=== PATIENT | male | born 1930 | race Caucasian/White ===

== ENCOUNTER 2016-06-01 10:51 | Inpatient (IN) | payer OTHER ==
[~2016-06-01] VITALS: Ht 165.1 cm; Wt 61.7 kg
[~2016-06-01 10:51] MED LIST: KEFLEX250 MG PO
--- NOTE | 2016-06-01 10:55 | NUR ---
PT TO SENT TO ED BY DR CHAPA FOR EVAL. PT WAS AT DR CHAPA'S OFFICE FOR "CHECK UP" OF PACEMAKER AND WAS TOLD HE LOOKED PALE. PT APPEARS PALE, HAS NO COMPLAINTS.
--- NOTE | 2016-06-01 11:13 | NUR ---
PT APPEARS PALE AND IS AAOX3, DENIES CP SOB. CHANGING INTO GOWN FOR EVAL AT THIS TIME
--- NOTE | 2016-06-01 11:29 | ED GENERAL ADULT ---
History of Present Illness General Chief Complaint: General Adult Stated Complaint: SENT BY FOR EVAL Source: patient, old records Exam Limitations: no limitations Vital Signs & Intake/Output Vital Signs & Intake/Output ED Intake and Output 06/02 0000 06/01 1200 Intake Total Output Total Balance Patient 136 lb Weight Weight Reported by Patient Measurement Method Allergies Coded Allergies: NO KNOWN ALLERGIES (06/04/11) Reconcile Medications Aspirin (Aspirin*) 81 MG TAB.CHEW 1 TAB PO QPM HEART HEALTH (Reported) Atorvastatin Calcium 80 MG TABLET 1 TAB PO QPM CHOLESTEROL (Reported) Metoprolol Succ XL (Toprol XL) 25 MG TAB 1 TAB PO QPM HEART (Reported) Oxybutynin Chloride (Ditropan XL) 10 MG TAB.ER.24 1 TAB PO QPM BLADDER ( Reported) Pantoprazole Sodium (Protonix) 40 MG GRANPKT.DR 1 TAB PO DAILY GI BLEED Ranitidine HCl (Acid Tallow Refiner) 150 MG TABLET 1 TAB PO BID PRN GI (Reported) Terazosin HCl 2 MG CAPSULE 1 CAP PO QPM PROSTATE (Reported) Triage Note: PT TO SENT TO ED BY DR CHAPA FOR EVAL. PT WAS AT DR CHAPA'S OFFICE FOR "CHECK UP" OF PACEMAKER AND WAS TOLD HE LOOKED PALE. PT APPEARS PALE, HAS NO COMPLAINTS. Triage Nurses Notes Reviewed? yes Onset: Abrupt Duration: day(s): (1), constant Timing: recent history Injury Environment: home Severity: mild Severity Numbers: 1 No Modifying Factors: none Associated Symptoms: denies HPI: 86-year-old male with history of hypertension high cholesterol, previous prostate cancer presents to the ER for evaluation sent in by his ranger aide to be sought. This week. He states he received a phone call this morning that his blood counts were low. Patient states over the past few days he is appeared pale. Reports about a month ago he had an episode of bloody stools that he thought had resolved. He denies any black or bloody stools recently area no weight loss. He denies dizziness lightheadedness chest pain palpitations abdominal pain fever chills weight loss. He is not on any anticoagulation. (ISAAC OLIVAS,SERA) Past History Travel History Traveled to [place] past 21 day No Medical History Any Pertinent Medical History? see below for history Cardiovascular: CAD (PACEMAKER), hypertension, hyperlipidemia Cancer(s): prostate cancer Influenza Vaccine: 10/27/09 Surgical History Surgical History: TURP Psychosocial History Who do you live with Patient/Self Services at Home None What is your primary language Montserratian Tobacco Use: Quit >30 days ago ETOH Use: denies use Illicit Drug Use: denies illicit drug use Family History Hx Contributory? No (SERA JUAREZ) Review of Systems Review of Systems Constitutional: Reports: see HPI. All Other Systems: Reviewed and Negative Comments Review of systems: See HPI, All other systems negative. Constitutional, no chills no fever, no malaise no weight loss HEENT: No visual changes no sore throat no congestion, no ear pain Cardiovascular: No chest pain , no palpitation , no orthopnea Skin: no rashes, no change in skin Respiratory: No dyspnea no cough no sputum no hemoptysis GI: No nausea no vomiting, no diarrhea, no bloating/constipation : No dysuria No hematuria, no frequency, no discharge Muscle skeletal: No joint pain, no joint swelling, no back pain, no neck pain, Neurologic: No numbness no confusion, no headache Psych: No stress no depression,. Heme/endocrine: No bruising no bleeding Immunology: No lymphadenopathy (SERA JUAREZ) Physical Exam Physical Exam General Appearance: well developed/nourished, alert, awake Comments: Well-developed well-nourished person in no acute distress HEENT: Normal EENT exam; PERRL, EOMI, HEAD is atraumatic. moist mucous membranes. Neck: Supple, normal range of motion Back: Nontender,Full range of motion Cardiovascular: Regular rate and rhythms no murmurs rubs or gallops Respiratory: Chest nontender.There were no bony deformities, no asymmetry. No respiratory distress. Patient speaking in full complete sentences. Breath sounds clear to auscultation bilaterally: NO W/R/R Abdomen: Soft, nontender nondistended, no appreciable organomegaly. Normal bowel sounds. No rebound/guarding, No appreciable enlargement of the abdominal aorta, No ascites. Rectal: Nontender. Brown stool heme positive. Extremity: No edema, full range of motion of extremities, Neuro: Alert oriented x3, motor sensory normal, There were no obvious focal neurologic abnormalities. Skin: (+) PALLOR, No appreciable rash on exposed skin, skin is warm and dry. Psych: Mood and affect is normal, memory and judgment is normal. Core Measures ACS in differential dx? Yes CVA/TIA Diagnosis: No Severe Sepsis Present: No Septic Shock Present: No (SERA JUAREZ) Progress Differential Diagnoses I considered the following diagnoses in my evaluation of the patient: [GI bleed, symptomatic anemia, electrolyte abnormality acute kidney injury Plan of Care: Orders Procedure Date/time Status Clear Liquid Diet 06/01 D Active Pathway - chart 06/01 1436 Active Patient Data 06/01 1436 Active Code Status 06/01 1436 Active Patient Data 06/01 1312 Active Add-on Test (ER Only) 06/01 1234 Active URINALYSIS 06/01 1234 Active OXYGEN SETUP (GEN) 06/01 1223 Active Saline Lock 06/01 1223 Active Admit to inpatient 06/01 1223 Active Vital Signs 06/01 1223 Active Activity/Ambulation 06/01 1223 Active Code Status 06/01 1223 Complete TROPONIN LEVEL 06/01 1159 Complete MISTAKE 06/01 1123 Active EKG 06/01 1123 Active PARTIAL THROMBOPLASTIN TIME 06/01 1115 Complete PROTHROMBIN TIME 06/01 1115 Complete COMPREHENSIVE METABOLIC PANEL 06/01 1115 Complete CBC WITHOUT DIFFERENTIAL 06/01 1115 Complete TYPE & SCREEN (NOT X-MATCH) 06/01 1115 Complete Intake & Output 06/01 1114 Active Saline Lock 06/01 UNK Active Discharge Patient 06/01 UNK Active VTE Mechanical Prophylaxis 06/01 UNK Active Vital Signs 06/01 UNK Active Intake & Output 06/01 UNK Active FingerStick- Glucose 06/01 UNK Active Laboratory Tests 06/01/16 1159: Anion Gap 13, Estimated GFR > 60, BUN/Creatinine Ratio 15.0, Glucose 96, Calcium 8.7, Total Bilirubin 0.2, AST 11 L, ALT 16 L, Alkaline Phosphatase 59, Troponin I < 0.01, Total Protein 5.9 L, Albumin 2.8 L, Globulin 3.1, Albumin/ Globulin Ratio 0.9 L 06/01/16 1125: CBC w Diff NO MAN DIFF REQ, RBC 3.70 L, MCV 74.5 L, MCH 22.9 L, RDW 15.8 H, MPV 7.7, Gran % 70.2, Lymphocytes % 19.7 L, Monocytes % 6.4, Eosinophils % 3.0, Basophils % 0.7, Absolute Granulocytes 10.5 H, Absolute Lymphocytes 3.0, Absolute Monocytes 1.0 H, Absolute Eosinophils 0.5, Absolute Basophils 0.1, PUBS MCHC 30.8 L 06/01/16 1100: PT 13.6 H, INR 1.30 H, APTT 40 H Labs ordered old records reviewed patient denies any complaints at this time orthostatics are negative Discussed with patient LAB results given guaiac positive I believe premature discharge would BE medically harmful which patient is agreement with case was discussed with Dr. holden and dr navarro will admit,per dr navarro will hold off on transfusion at [facility] time (ISAAC OLIVAS,SERA) Diagnostic Imaging: Viewed by Me: Radiology Read. Discussed w/RAD: Radiology Read. Radiology Impression: PATIENT: SOFI THACKER PRESENT AGE: 86 PATIENT ACCOUNT NO: [id number] : 30 LOCATION: [facility] ORDERING PHYSICIAN: SERA OLIVAS SERVICE DATE: 06/01/16-1257 EXAM TYPE: RAD - XRY-PORTABLE CHEST XRAY EXAMINATION: XR PORTABLE CHEST CLINICAL INFORMATION: Elevated white blood cell count. Rule out pneumonia. COMPARISON: TECHNIQUE: Portable frontal upright view of the chest was obtained. FINDINGS: EKG leads overlie the chest. Dual-lead to the left pectoral pacemaker terminate in the right atrium and right ventricle. Cardiac and mediastinal contours are normal. Minimal atelectasis/scarring in the lung bases. No consolidation, pneumothorax, or pleural effusion. Degenerative disc disease is present in the thoracic spine. Degenerative arthritis present in the glenohumeral and acromioclavicular joints. IMPRESSION: Clear lungs. No radiographic evidence of pneumonia. DICTATED BY: OWEN WELLS MD DATE/TIME DICTATED:06/01/161317 SUBSTANCE ABUSE NURSE:CHATO DATE/TIME TRANSCRIBED:1317 CONFIDENTIAL, DO NOT COPY WITHOUT APPROPRIATE AUTHORIZATION. < Electronically signed in Other Vendor System> SIGNED BY: OWEN WELLS MD 06/01/16 1324 Initial ED EKG: NORMAL SINUS AT 90, NORMAL AXIS NO ACUTE st SEGMENT CHANGES Prior EKG: unchanged (08/2012) (SERA JUAREZ) Departure Departure Time of Disposition: 131 Disposition: STILL A PATIENT Condition: Stable Clinical Impression Primary Impression: GI bleed Secondary Impressions: Symptomatic anemia Referrals: DUSTY GOODMAN,JANAY RUIZ (PCP/Family) Departure Forms: Customer Survey General Discharge Information Prescriptions: Current Visit Scripts Pantoprazole Sodium (Protonix) 1 TAB PO DAILY #30 Admission Note Spoke With: MICHAEL CARR MD Documentation of Exam: Documentation of any treatments & extenuating circumstances including Concerns Regarding Discharge (functional status, medication knowledge or non-compliance, living conditions, etc.) that warrant an admissionrather than observation: Trend labs GI consult, trend H&H, Premature discharge would be medically harmful (SERA JUAREZ) PA/SPORTS PHYSIOLOGIST Co-Sign Statement Statement: ED Attending supervision documentation- X I saw and evaluated the patient. I have also reviewed all the pertinent lab results and diagnostic results. I agree with the findings and the plan of care as documented in the PA's/SPORTS PHYSIOLOGIST's documentation. [] I have reviewed the ED Record and agree with the PA's/SPORTS PHYSIOLOGIST's documentation. [] Additions or exceptions (if any) to the PAs/SPORTS PHYSIOLOGIST's note and plan are summarized below: [] (NAZIA GOODMAN,SHYANNE) Critical Care Note Critical Care Note Critical Care Time: non-applicable (SERA JUAREZ)
--- NOTE | 2016-06-01 11:36 | NUR ---
IV ESTABLISHED AND LABS DRAWN AND SENT (BLUE, SST X2, LAV, PINK). ORTHOS NEGATIVE
[2016-06-01 11:49] LABS: PT 13.6 SEC (9.4-12.5); PTT 40 SEC (25-37)
[2016-06-01] MEDS ORDERED: TERAZOSIN HCL2 M1 PO (11:49)
[2016-06-01] MEDS ORDERED: TOPROL XL25 M1 PO (11:50)
[2016-06-01] MEDS ORDERED: ACID REDUCER150 MG PO (11:50)
[2016-06-01] MEDS ORDERED: ATORVASTATIN CA80 M1 PO (11:50)
[2016-06-01] MEDS ORDERED: DITROPAN XL10 M1 PO (11:51)
[2016-06-01] MEDS ORDERED: ASPIRIN81 M4 PO (11:51)
[2016-06-01 11:53] LABS: ABSOLUTE BASOPHIL COUNT 0.1 /CUMM (0.0-0.2); ABSOLUTE EOSINOPHIL COUNT 0.5 /CUMM (0.0-0.7); ABSOLUTE GRANULOCYTE CT 10.5 /CUMM (1.4-6.5); BASOPHIL % 0.7 % (0.0-2.0); GRANULOCYTE % 70.2 % (42.2-75.2); HEMATOCRIT 27.5 % (42-52); MEAN CORPUSCULAR HGB 22.9 PG (27.0-31.0); MEAN CORPUSCULAR HGB CONC 30.8 G/DL (33.0-37.0); MEAN CORPUSCULAR VOLUME 74.5 FL (80.0-94.0); MEAN PLATELET VOLUME 7.7 FL (7.4-10.4); PLATELET COUNT 702 /CUMM (130-400); RBC DISTRIBUTION WIDTH 15.8 % (11.5-14.5)
--- NOTE | 2016-06-01 12:01 | NUR ---
PER LAB, SST AND PINK HEMOLYZED DESPITE TWO SST'S DRAWN. ADDITIONAL LABS DRAWN AND SENT. PT INFORMED OF DELAY IN CARE BY LABS.
--- NOTE | 2016-06-01 13:02 | History & Physical ---
See Addendum CECE OROZCO 06/01/16 1302: General Information and HPI MD Statement: I have seen and personally examined SOFI THACKER and documented this H&P. The patient is a 86 year old M who presented with a patient stated chief complaint of [GI BLEED]. Source of Information: patient Exam Limitations: no limitations History of Present Illness: This is a 86-year-old male with past medical history of hypertension, hyperlipidemia, prior history of prostate cancer (in ) status post TURP, GERD, coronary artery disease status post AICD (5-6 years ago) came in from home , after being found to have low H&H on the lab work done at primary dust sampler Dr. CHAPA'S office 2 days ago, he visited him for his regular follow-up. Most of his care has been at [facility]. Initially the patient was doing all right, and he visited his cardiology Dr. chapa 's office on 05/30/2016 for a routine follow-up, when the doctor noticed that the patient appeared very pale, and lab work was ordered. He received a call back from his office today saying that his blood counts were very low. The patient recalls that patient had one episode of bloody stools one month ago that he thought had resolved. He also notes that he has been having black stools past week or so, some dizziness and lightheadedness, but did not have any episode of juan jose blood per rectum or in his urine bag. At baseline the patient has a suprapubic small catheter and a urine bag, through which he occasionally passes urine however he has a fistula and at baseline he urinates normally as well as sometimes through the bowel area. He has occasional blood on and off through the fistula however he hasn't noticed any obvious juan jose blood in the recent past. He was noted to be guaiac-positive at the emergency department. Denied any chest pain, palpitations, abdominal pain, fever, chills, weight loss. He is not on any anticoagulation other than low-dose aspirin. He has a remote history of prostate cancer in , was complicated and the patient had TURP and fistula recently for which he was following up with the urology Department at [facility]. His doctors mainly consist of at [facility] chapa cardiology and urology at [facility]. Allergies/Medications Allergies: Coded Allergies: NO KNOWN ALLERGIES (06/04/11) Compliance With Home Meds: GOOD Past History Travel History Traveled to [place] past 21 day No Medical History Cardiovascular: CAD (PACEMAKER), hypertension, hyperlipidemia Cancer(s): prostate cancer Influenza Vaccine: 10/27/09 Surgical History Surgical History: TURP ECHO Results (as available) Date of last Echo 10/27/09 EF% 55 Past Family/Social History Psychosocial History Where do you live? Home Who Do You Live With? self Services at Home: None Smoking Status: Former Smoker ETOH Use: denies use Illicit Drug Use: denies illicit drug use Functional Ability ADLs Independent: dressing, eating, toileting, bathing. Ambulation: independent IADLs Independent: shopping, housework, finances, food prep, telephone, transportation , medication admin. Review of Systems Review of Systems Constitutional: Reports: malaise, weakness. Denies: chills, diaphoresis, fever, unexplained weight loss. EENTM: Denies: blurred vision, double vision, visual changes, eye pain. Cardiovascular: Denies: chest pain, edema, orthopena, palpitations. Respiratory: Denies: cough, hemoptysis, orthopnea, short of breath, sputum production. GI: Reports: diarrhea, melena. Denies: abdominal pain, bloating, constipation, distention, bowel incontinence, nausea, bloody stool, changes in stool, vomiting. Genitourinary: Reports: hematuria. Denies: discharge, dysuria, frequency, hesitation, nocturia , pain. Musculoskeletal: Reports: no symptoms. All Other Systems: Reviewed and Negative Exam & Diagnostic Data Last 24 Hrs of Vital Signs/I&O Vital Signs Date Time Temp Pulse Resp B/P B/P Pulse O2 O2 Flow FiO2 Mean Ox Delivery Rate 06/01 1306 98.5 81 18 157/72 97 Room Air 06/01 1114 96 Room Air 06/01 1054 98.7 103 20 132/68 97 Room Air Intake & Output 06/01 1600 06/01 0800 06/01 0000 Intake Total Output Total Balance Patient 61.689 kg Weight Weight Reported by Patient Measurement Method Physical Exam General Appearance Alert, Oriented X3, Cooperative, No Acute Distress Skin palor present Skin Temp/Moisture Exam: Cool/Dry Sepsis Skin Exam (color): Normal for Ethnicity HEENT Atraumatic, PERRLA, EOMI Neck Supple, No JVD, No thryomegaly Lymphatic no lad Cardiovascular Regular Rate, Normal S1, Normal S2, No Murmurs Lungs Clear to Auscultation, Normal Air Movement Abdomen Normal Bowel Sounds, Soft, No Tenderness Neurological Strength at 5/5 X4 Ext, Normal Tone, Sensation Intact, Cranial Nerves 3-12 NL, Reflexes 2+ Extremities No Clubbing, No Cyanosis, No Edema, Normal Pulses Vascular Normal Pulses Rectal guaic positive Last 24 Hrs of Labs/Lei: Laboratory Tests 06/01/16 1159: Anion Gap 13, Estimated GFR > 60, BUN/Creatinine Ratio 15.0, Glucose 96, Calcium 8.7, Total Bilirubin 0.2, AST 11 L, ALT 16 L, Alkaline Phosphatase 59, Troponin I < 0.01, Total Protein 5.9 L, Albumin 2.8 L, Globulin 3.1, Albumin/ Globulin Ratio 0.9 L 06/01/16 1125: CBC w Diff NO MAN DIFF REQ, RBC 3.70 L, MCV 74.5 L, MCH 22.9 L, RDW 15.8 H, MPV 7.7, Gran % 70.2, Lymphocytes % 19.7 L, Monocytes % 6.4, Eosinophils % 3.0, Basophils % 0.7, Absolute Granulocytes 10.5 H, Absolute Lymphocytes 3.0, Absolute Monocytes 1.0 H, Absolute Eosinophils 0.5, Absolute Basophils 0.1, PUBS MCHC 30.8 L 06/01/16 1100: PT 13.6 H, INR 1.30 H, APTT 40 H Diagnostic Data EKG Results paced rhythm CXR Results SERVICE DATE: 06/01/16 EXAM TYPE: RAD - XRY-PORTABLE CHEST XRAY EXAMINATION: XR PORTABLE CHEST CLINICAL INFORMATION: Elevated white blood cell count. Rule out pneumonia. COMPARISON: 10/26/2009 TECHNIQUE: Portable frontal upright view of the chest was obtained. FINDINGS: EKG leads overlie the chest. Dual-lead to the left pectoral pacemaker terminate in the right atrium and right ventricle. Cardiac and mediastinal contours are normal. Minimal atelectasis/scarring in the lung bases. No consolidation, pneumothorax, or pleural effusion. Degenerative disc disease is present in the thoracic spine. Degenerative arthritis present in the glenohumeral and acromioclavicular joints. IMPRESSION: Clear lungs. No radiographic evidence of pneumonia. Assessment/Plan Assessment: In summary this is a 86-year-old male with past medical history of hypertension, hyperlipidemia, prior history of prostate cancer status post TURP, GERD, coronary artery disease status post AICD placement came in from home after being found to have low H&H at regular lab work at his primary dust sampler Dr. CHAPA'S OFFICE. He also endorses a history of having one bloody bowel movement about a month ago which resolved by itself. Some recent black stools since last 3-4 days, some dizziness and lightheadedness and no other episodes of juan jose blood per rectum or change in the urine. Vitals on admission temperature of 98.7, pulse of 8200, respiration of 18-20, blood pressure of 132-157 systolic and 60-70 diastolic, 96% saturating on room air. Relevant labs white count of 15.0, H/H of 8.5/27.5 (last H/H noted to be 12.1/ 37.5 in 02/29/2012). MCV noted to be 74.5. PT 13.6, INR 1.30, PTT of 40. Electrolytes within normal limits, sodium of 145, potassium of 3.5, BUN and creatinine 15/1.0, glucose of 96. Liver function tests within normal limit, calcium of 8.7, initial set of troponin negative less than 0.01. Last echocardiogram as per our records was in 2009 with mild LVH, mild left ventricular agitation and ejection fraction greater than 55% however as per the patient he has had recent echocardiogram as well as colonoscopy last year at the [facility]. We'll need to open records from the [facility]. Chest x-ray was essentially negative and did not show any acute cardiopulmonary findings. Patient was found to be quite positive. We Will admit the patient to general medicine floor for acute blood loss anemia possibly secondary to upper GI versus lower GI blood loss. * Continue to monitor vitals every shift. * Continue to maintain 2 large bore IV needles. * Crossmatch and type done. * Goal H&H of 8/24. * Next H&H at 3:30 PM. If the patient drops less than 8 then we will transfuse patient 1 unit to keep hemoglobin about 8. * Continue IV PPI. * Clear liquids for now. * Nothing by mouth after midnight. * hold the aspirin. * GI consult. Problem #2 history of hypertension. * Continue metoprolol. problem # 3 History of hyperlipidemia. * Continue statin. FC dvt px alps As Ranked By This Provider Problem List: 1. GI bleed Core Measures/Miscellaneous Acute Coronary Syndrome ACS Diagnosis: No Cerebrovascular Accident CVA/TIA Diagnosis: No Congestive Heart Failure CHF Diagnosis: No Venous Thromboembolism VTE Risk Factors: Age > 40 [facility] prophylaxis d/t: No contraindications No VTE Pharm Prophylaxis d/t: No contraindications VTE Diagnosis: No VTE Type: NONE VTE Confirmed by (Test): NONE Severe Sepsis Severe Sepsis Present: No Septic Shock Septic Shock Present: No Miscellaneous Documentation Attending Case Discussed With: ERICA JACKSON MD Primary Care Physician: JANAY MONTANO MD Patient sees these Specialists dr chapa dust sampler Level of Patient Care: General Medicine ERICA JACKSON MD 06/02/16 1423: General Information and HPI Allergies/Medications Home Med list Aspirin (Aspirin*) 81 MG TAB.CHEW 1 TAB PO QPM HEART HEALTH (Reported) Atorvastatin Calcium 80 MG TABLET 1 TAB PO QPM CHOLESTEROL (Reported) Metoprolol Succ XL (Toprol XL) 25 MG TAB 1 TAB PO QPM HEART (Reported) Oxybutynin Chloride (Ditropan XL) 10 MG TAB.ER.24 1 TAB PO QPM BLADDER ( Reported) Pantoprazole Sodium (Protonix) 40 MG GRANPKT.DR 1 TAB PO DAILY GI BLEED Ranitidine HCl (Acid Discharge Planner) 150 MG TABLET 1 TAB PO BID PRN GI (Reported) Terazosin HCl 2 MG CAPSULE 1 CAP PO QPM PROSTATE (Reported) Attending MD Review Statement Attending Statement Attending MD Statement: examined this patient, discuss w/resident/PA/GEOTHERMAL POWERPLANT MECHANIC, agreed w/resident/PA/GEOTHERMAL POWERPLANT MECHANIC, discussed with family, reviewed EMR data (avail), discussed with nursing, discussed with case mgmt, reviewed images, amended to note Attending Assessment/Plan: ALso see my separate addendum.
--- NOTE | 2016-06-01 13:24 | RADIOLOGY REPORT ---
EXAMINATION: XR PORTABLE CHEST CLINICAL INFORMATION: Elevated white blood cell count. Rule out pneumonia. COMPARISON: 10/26/2009 TECHNIQUE: Portable frontal upright view of the chest was obtained. FINDINGS: EKG leads overlie the chest. Dual-lead to the left pectoral pacemaker terminate in the right atrium and right ventricle. Cardiac and mediastinal contours are normal. Minimal atelectasis/scarring in the lung bases. No consolidation, pneumothorax, or pleural effusion. Degenerative disc disease is present in the thoracic spine. Degenerative arthritis present in the glenohumeral and acromioclavicular joints. IMPRESSION: Clear lungs. No radiographic evidence of pneumonia.
--- NOTE | 2016-06-01 14:08 | NUR ---
HOUSE STAFF IN ROOM FOR EVAL
--- NOTE | 2016-06-01 14:22 | NUR ---
PT HAD LOOSE BM, STATES IS HAD SMEARS OF BLACK IN IT. INFORMED THAT URINE SPECIMEN IS ALSO NEEDED AND TO NOT EMPTY BAG OUT WITHOUT NOTIFYING RN. FAMILY PRESENT AND STATES THAT PT HAD A ENDOSCOPE AND COLONOSCOPY DONE 2 WEEKS AGO AT [facility]
--- NOTE | 2016-06-01 14:31 | PN- Att Addend ---
Attending Addendum Attending Brief Note 86-year-old male with past medical history significant for hypertension, hyperlipidemia, history of prostate cancer status post radiation treatment years ago, history of pacemaker placement (cardilogist is Dr. Mckinney at [facility]), suprapubic catheter and colovesicle fistula follows up with a urologist at the [facility], who was sent in by his doctor the hospital because his blood counts were low. Patient denies any symptoms other than he did notice some black stools about a week ago. About a month ago he had some bright red blood per rectum. Patient claims that "my doctor told me that I look very pale". He denies any chest pain , shortness of breath, dizziness. Did complain of mild fatigue. Denies any abdominal pain, nausea, vomiting, hematemesis. No fevers or chills. He does take an aspirin a day. In the emergency room his stool was brown, guaiac positive. Vital Signs Date Time Temp Pulse Resp B/P B/P Pulse O2 O2 Flow FiO2 Mean Ox Delivery Rate 06/01 1306 98.5 81 18 157/72 97 Room Air 06/01 1114 96 Room Air 06/01 1054 98.7 103 20 132/68 97 Room Air on exam; aox3, nad. heent: + pallor. cv; s1,s2, rrr, soft systolic murmur, + PPM. resp; clear abd; soft, nt, bs+, + suprapubic cath. ext; no edema. Laboratory Tests 06/01 06/01 06/01 1159 1125 1100 Chemistry Sodium (137 - 145 mmol/L) 145 Potassium (3.5 - 5.1 mmol/L) 3.5 Chloride (98 - 107 mmol/L) 110 H Carbon Dioxide (22 - 30 mmol/L) 21 L Anion Gap (5 - 16) 13 BUN (9 - 20 mg/dL) 15 Creatinine (0.7 - 1.2 mg/dL) 1.0 Estimated GFR (>60 ml/min) > 60 BUN/Creatinine Ratio (7 - 25 %) 15.0 Glucose (65 - 99 mg/dL) 96 Calcium (8.4 - 10.2 mg/dL) 8.7 Total Bilirubin (0.2 - 1.3 mg/dL) 0.2 AST (17 - 59 U/L) 11 L ALT (21 - 72 U/L) 16 L Alkaline Phosphatase (< 127 U/L) 59 Troponin I (<0.11 ng/ml) < 0.01 Total Protein (6.3 - 8.2 g/dL) 5.9 L Albumin (3.5 - 5.0 g/dL) 2.8 L Globulin (1.9 - 4.2 gm/dL) 3.1 Albumin/Globulin Ratio (1.1 - 2.2 %) 0.9 L Coagulation PT (9.4 - 12.5 SEC) 13.6 H INR (0.90 - 1.17) 1.30 H APTT (25 - 37 SEC) 40 H Hematology CBC w Diff NO MAN DIFF REQ WBC (4.8 - 10.8 /CUMM) 15.0 H RBC (4.70 - 6.10 /CUMM) 3.70 L Hgb (14.0 - 18.0 G/DL) 8.5 L Hct (42 - 52 %) 27.5 L MCV (80.0 - 94.0 FL) 74.5 L MCH (27.0 - 31.0 PG) 22.9 L RDW (11.5 - 14.5 %) 15.8 H Plt Count (130 - 400 /CUMM) 702 H MPV (7.4 - 10.4 FL) 7.7 Gran % (42.2 - 75.2 %) 70.2 Lymphocytes % (20.5 - 51.1 %) 19.7 L Monocytes % (1.7 - 9.3 %) 6.4 Eosinophils % (0 - 5 %) 3.0 Basophils % (0.0 - 2.0 %) 0.7 Absolute Granulocytes (1.4 - 6.5 /CUMM) 10.5 H Absolute Lymphocytes (1.2 - 3.4 /CUMM) 3.0 Absolute Monocytes (0.10 - 0.60 /CUMM) 1.0 H Absolute Eosinophils (0.0 - 0.7 /CUMM) 0.5 Absolute Basophils (0.0 - 0.2 /CUMM) 0.1 PUBS MCHC (33.0 - 37.0 G/DL) 30.8 L EKG>>> sinus rythm. CXR: Clear A/P; 86-year-old male with past medical history significant for hypertension, hyperlipidemia, history of prostate cancer status post radiation treatment years ago, history of pacemaker placement, suprapubic catheter and colovesicle fistula follows up with a urologist at the [facility], who is admitted with acute blood loss anemia likely secondary to GI blood loss. 4 years ago his hemoglobin and hematocrit was much higher. We do not have any records in between. Patient thinks that he might have had a colonoscopy done recently at [facility] although records aren't available at present. Patient will be admitted to medicine floor. Patient will be typed and crossed, 2 large bore IV dose will be inserted. H&H will be monitored. Patient be started on gentle IV hydration. We can start him on clear liquids for now and nothing by mouth after midnight. Please start the patient on IV PPI. GI consult should be obtained. Hold aspirin. Patient to be kept nothing by mouth of the midnight except for meds. Continue other medicines except for aspirin. Please get records from [facility]. DVT prophylaxis: ALPS. Full code. Update: [id number]: Patient and family do not want to be admitted to [place] because all of his care is at [facility] and even GIB work up was bhupendra started. Son claims that recently his Hb was 8.[address] [facility]. They are willing to sign out AMA and taking patient to [facility] via private vehicle Understanding all the risks of leaving AMA. Hemodynmically stable. All of the above was discussed at length with case mangement as as Dr. Pretty initially.
--- NOTE | 2016-06-01 14:32 | Admission Certification ---
Admission Certification Certification Statement - As attending physician, I certify that at the time of - admission, based on clinical presentation, severity of - symptoms, need for further diagnostic testing and - therapeutic interventions, and risk of adverse outcomes - without in-hospital treatment, in my clinical assessment, - this patient requires an acute hospital stay for a minimum - of two nights or longer. I have also considered psychsocial - factors such as support system, advanced age, financial - issues, cognitive issues, and failed out-patient treatments, - past re-admission history, safety of patient, and lack of - compliance as applicable. Specific rationale supporting this admission is: patient admitted with GIB, needs H&H monitoring, GI eval.
--- NOTE | 2016-06-01 15:01 | NUR ---
PAGED AT X010 REGARDING PT AND FAMILY REQUEST [facility] DUE TO ALL STUDIES COMPLETED TEHRE AND GI SPECIALIST. MOD NOTIFIED WELL AND SHE AND HOUSE STAFF WILL DISCUSS PLAN
--- NOTE | 2016-06-01 15:15 | NUR ---
MEDICATED WITH PROTONIX IV PER eMAR
--- NOTE | 2016-06-01 15:15 | NUR ---
MD AT BEDSIDE TO DISCUSS OPTIONS. WILL CONSULT ATTENDING TO DETERMINE PLAN
[2016-06-01 16:10] VITALS: BP 148/78
--- NOTE | 2016-06-01 16:20 | NUR ---
06/01 CASE MGMT- DR ESPINAL AND DR KNIGHT CAME TO SPEAK WITH ERIBERTO AND Darren REGARDING PT POSSIBLY OF GOING TO [facility]. CALL PLACED TO [facility] AND MESSAGE LEFT.
--- NOTE | 2016-06-01 16:30 | NUR ---
06/01 CASE MGMT- [facility] AND SPOKE WITH NURSING NOISE ABATEMENT ENGINEER MONIKA WHOM STATES THAT AT THIS TIME NO BEDS AVAILABLE AND THAT PT IS NOT SERVICE CONNECTED SO IF HE WERE TO TRANSFER BY AMBULANCE FROM HOSPTIAL IT WOULD NOT BE COVER.
--- NOTE | 2016-06-01 16:30 | NUR ---
HOUSE STAFF IN ROOM AGAIN TO DETERMINE PLAN FOR DISCHARGE OR TRANSFER.
[2016-06-01] MEDS ORDERED: PROTONIX40 M4 PO (16:37)
--- NOTE | 2016-06-01 16:38 | Patient Discharge Instructions ---
Discharge Instructions General Discharge Information You were seen/treated for: LOW H/H---GUAIAC POSITIVE STOOL Diet Continue normal diet: Yes Activity Full Activity/No Limits: Yes Acute Coronary Syndrome Inclusion Criteria At DC or during hospital stay patient has or had the following: ACS DIAGNOSIS No Discharge Core Measures Meds if any: Prescribed or Continued at Discharge Meds if any: NOT Prescribed or Continued at Discharge Congestive Heart Failure Inclusion Criteria At DC or during hospital stay patient has or had the following: CHF DIAGNOSIS No Discharge Core Measures Meds if any: Prescribed or Continued at Discharge Meds if any: NOT Prescribed or Continued at Discharge Cerebrovascular accident Inclusion Criteria At DC or during hospital stay patient has or had the following: CVA/TIA Diagnosis No Discharge Core Measures Meds if any: Prescribed or Continued at Discharge Meds if any: NOT Prescribed or Continued at Discharge Venous thromboembolism Inclusion Criteria VTE Diagnosis No VTE Type NONE VTE Confirmed by (Test) NONE Discharge Core Measures - Per Current guidelines, there needs to be overlap - treatment for the first 5 days of Warfarin therapy. - If discharged on Warfarin prior to 5 days of - overlap therapy, the patient will need to be - assessed for post discharge needs including - *Post discharge parental anticoagulation - *Warfarin and/or parental anticoagulation education - *Follow up date to check INR post discharge At least 5 days overlap therapy as Inpatient No Meds if any: Prescribed or Continued at Discharge Note: Overlap Therapy is Warfarin and Anticoagulant Meds if any: NOT Prescribed or Continued at Discharge
--- NOTE | 2016-06-01 16:49 | NUR ---
FAMILY AND PATIENT UPDATED ON CASE MANAGEMENT [facility]ULT [facility]
--- NOTE | 2016-06-01 16:49 | Discharge Summary ---
Visit Information Visit Dates Admission Date: 06/01/16 Discharge Date: 06/01/2016 Hospital Course Course Attending Physician: MANUEL GOODMAN,[place] Primary Care Physician: DUSTY GOODMAN,[facility] Course: Armida who had been admitted to [facility] just an hour ago now wants to go to [facility]. Patient and family do not want to be admitted to [place] because all of his care is at [facility] and even GIB work up was laready started. Son claims that recently his Hb was 8.5 at [facility]. They are willing to sign out AMA and taking patient to [facility] via private vehicle Understanding all the risks of leaving AMA. Hemodynmically stable. All of the above was discussed at length with case mangement as as Dr. Pretty initially. He did receive some IVfs in ER and while this discussion was happening he was physically still in the ER. His stool was brown gauic positive per ER Physician elida Torres. he was advised to follow up with his GI doctor. We recommend stopping his ASA and starting him on a PPI at this time. Allergies: Coded Allergies: NO KNOWN ALLERGIES (06/04/11) Disposition Summary Disposition Principal Diagnosis: acute blood loss anemia 2/2 possible GL bleed Additional Diagnosis: hypertension, hyperlipidemia, history of prostate cancer, suprapubic catheter with Colovesicle fistula. Discharge Disposition: left against medical adv Discharge Instructions General Discharge Information Code Status: Full Code Patient's Diet: normal Patient's Activity: independent Follow-Up Instructions/Appts: 1. Followup with your Primary critical care unit nurse after hospital discharge Medications at Discharge Discharge Medications: Stop taking the following medications: Aspirin (Aspirin*) 81 MG TAB.CHEW ORAL Every night Continue taking these medications: Terazosin HCl (Terazosin HCl) 2 MG CAPSULE 1 Capsule ORAL Every night Metoprolol Succ XL (Toprol XL) 25 MG TAB 1 Tablet ORAL Every night Atorvastatin Calcium (Atorvastatin Calcium) 80 MG TABLET 1 Tablet ORAL Every night Ranitidine HCl (Acid Fundraising Coordinator) 150 MG TABLET 1 Tablet ORAL TWICE DAILY as needed for GI Oxybutynin Chloride (Ditropan XL) 10 MG TAB.ER.24 1 Tablet ORAL Every night Start taking the following new medications: Pantoprazole Sodium (Protonix) 40 MG LOUISA.DR 1 Tablet ORAL DAILY Qty = 30 No Refills Copies To: DUSTY GOODMAN,JANAY RUIZ
--- NOTE | 2016-06-01 16:50 | NUR ---
06/01 CASE MGMT- ERIBERTO, MYSELF, DR KNIGHT AND MARCELLE RN WENT IN TO SPEAK WITH PT AND PT FAMILY AND MADE AWARE THAT THER EARE NO OPEN BEDS AT THE [facility] AND THAT THE TRASPORTATION VIA AMBULANCE WOULD NOT BE COVERED PER MONIKA THE NURSING HELICOPTER REPAIRER AT THE [place]. WE GAVE PT AND FAMILY OPTIONS REGARDING STAYING HERE AND POTENTIALLY BEING TRANSFERRED AT A LATER DATE. PT AND PT FAMILY DO NOT WANT TO STAY AND ARE REQUESTING TO LEAVE AGAINST MEDICAL ADVICE.
--- NOTE | 2016-06-01 17:23 | NUR ---
PT DISCHARGED AMA AND REEDUCATED ON RISKS. IV DC'ED. COPIES OF ALL LABWORK, EMAR REPORT, AND RADIOLOGY RESULTS PROVIDED FOR FAMILY AND PT TO BRING TO [facility]. AMB OUT OF ED IN NAD
== END 2016-06-01 17:12 | disposition left against medical advice (07) | DRG 812 ==
LOC: ERH 10:51 → ERHI 12:23 → CANBEDREQ 16:40 → ERHI 17:10
PROVIDERS: Physician Assistant Medical; ADMIT Hospitalist
DX: D62 Acute posthemorrhagic anemia (principal); K92.2 Gastrointestinal hemorrhage, unspecified; I10 Essential (primary) hypertension; E78.5 Hyperlipidemia, unspecified; Z85.46 Personal history of malignant neoplasm of prostate; Z87.891 Personal history of nicotine dependence
CPT/HCPCS: ERO; 93005; 93010; 96374